=== PATIENT | female | born 1945 | race Caucasian/White ===

== ENCOUNTER 2022-11-08 12:00 | Outpatient (CLI) | payer MEDICARE, MEDICAID ==
[2022-11-08 13:12] LABS: ALBUMIN 4.1 G/DL (3.4-5.0); ANION GAP 9 (8-16); BLOOD UREA NITROGEN 19 MG/DL (7-18); BUN/CREATININE RATIO 19.4 (6.6-38.0); CALCIUM 9.9 MG/DL (8.5-10.1); CHLORIDE 103 MMOL/L (99-107); CREATININE 0.98 MG/DL (0.40-0.90); GLUCOSE 107 MG/DL (70-104); POTASSIUM 3.7 MMOL/L (3.5-5.1); SODIUM 140 MMOL/L (135-145); TOTAL CARBON DIOXIDE 27.9 MMOL/L (24-32); eGFR 55 ML/MIN
[2022-11-08 13:13] LABS: BASOPHILS % (AUTO) 0.4 % (0-1); EOSINOPHILS # (AUTO) 0.1 X10'3 (0-0.9); EOSINOPHILS % (AUTO) 1.9 % (0-6); HEMATOCRIT 46.5 % (35.0-45.0); HEMOGLOBIN 15.4 g/dl (12.0-16.0); LYMPHOCYTES # (AUTO) 2.3 X10'3 (1.1-4.8); LYMPHOCYTES % (AUTO) 33.5 % (21-51); MEAN CORPUSCULAR HEMOGLOBIN 31.3 PG (27.0-31.0); MEAN CORPUSCULAR HGB CONC 33.2 g/dL (33.0-36.5); MEAN CORPUSCULAR VOLUME 94.2 FL (78-98); MEAN PLATELET VOLUME 10.7 FL (7.4-10.4); MONOCYTES # (AUTO) 0.6 X10'3 (0-0.9); MONOCYTES % (AUTO) 8.5 % (2-12); NEUTROPHILS # (AUTO) 3.8 X10'3 (1.8-7.7); NEUTROPHILS % (AUTO) 55.7 % (42-75); PLATELET COUNT 157 X10'3 (140-440); RED BLOOD COUNT 4.93 X10'6 (4.20-5.60); RED CELL DISTRIBUTION WIDTH 13.7 % (11.5-14.5); WHITE BLOOD COUNT 6.9 X10'3 (4.5-11.0)
[2022-11-08 13:17] LABS: APTT 42 SECONDS (22-32)
== END 2022-11-08 23:59 | disposition home or self-care (01) ==
LOC: LAB 12:00 → EDSTATUS 11-15 14:00
PROVIDERS: ATTEND Student in an Organized Health Care Education/Training Program
DX: I48.91 Unspecified atrial fibrillation (principal); I10 Essential (primary) hypertension; E78.5 Hyperlipidemia, unspecified
CPT/HCPCS: 80048; 85025; 85610; 85730

== ENCOUNTER 2022-12-06 11:50 | Day surgery (SDC) | payer MEDICARE, MEDICAID ==
[2022-12-01 12:07] LABS: BASOPHILS # (AUTO) 0.1 X10'3 (0-0.2); BASOPHILS % (AUTO) 1.1 % (0-1); EOSINOPHILS # (AUTO) 0.2 X10'3 (0-0.9); EOSINOPHILS % (AUTO) 2.8 % (0-6); HEMATOCRIT 42.9 % (35.0-45.0); HEMOGLOBIN 14.1 g/dl (12.0-16.0); LYMPHOCYTES # (AUTO) 1.9 X10'3 (1.1-4.8); LYMPHOCYTES % (AUTO) 33.2 % (21-51); MEAN PLATELET VOLUME 10.2 FL (7.4-10.4); MONOCYTES # (AUTO) 0.5 X10'3 (0-0.9); MONOCYTES % (AUTO) 8.6 % (2-12); NEUTROPHILS # (AUTO) 3.1 X10'3 (1.8-7.7); NEUTROPHILS % (AUTO) 54.3 % (42-75); PLATELET COUNT 166 X10'3 (140-440); RED BLOOD COUNT 4.56 X10'6 (4.20-5.60); RED CELL DISTRIBUTION WIDTH 13.9 % (11.5-14.5); WHITE BLOOD COUNT 5.7 X10'3 (4.5-11.0)
[2022-12-01 12:17] LABS: ALBUMIN 3.6 G/DL (3.4-5.0); ANION GAP 6 (8-16); BLOOD UREA NITROGEN 11 MG/DL (7-18); BUN/CREATININE RATIO 12.9 (6.6-38.0); CALCIUM 9.3 MG/DL (8.5-10.1); CHLORIDE 107 MMOL/L (99-107); CREATININE 0.85 MG/DL (0.40-0.90); GLUCOSE 110 MG/DL (70-104); POTASSIUM 3.9 MMOL/L (3.5-5.1); SODIUM 140 MMOL/L (135-145); TOTAL CARBON DIOXIDE 27.2 MMOL/L (24-32); eGFR 65 ML/MIN
[2022-12-01 12:18] LABS: APTT 42 SECONDS (22-32)
[2022-12-06] VITALS (9 sets, daily range): BP systolic 143–178; BP diastolic 75–98
[~2022-12-06] VITALS: Ht 165.1 cm; Wt 73.6 kg
[2022-12-06] MEDS ORDERED: fentaNYL/PF 50MCG/1 ML 2ML syringe IV ONE (12:05)
[2022-12-06] MEDS ORDERED: normal saline 1000ml 1,000 ML IV SCH (12:05)
[2022-12-06] MEDS ORDERED: MIDAZolam 1mg/ml 10ml vial IV ONE (12:05)
[2022-12-06] MEDS ORDERED: SOTA80TA73 PO (12:13)
[2022-12-06] MEDS ORDERED: RIVA20TA PO (12:13)
[2022-12-06] MEDS ORDERED: CHOL20003 PO (12:13)
[2022-12-06] MEDS ORDERED: ATOR10TA70 PO (12:13)
[2022-12-06] MEDS ORDERED: LISI1TAB49 PO (12:13)
== END 2022-12-06 16:00 | disposition home or self-care (01) ==
LOC: SSTAY O 11:50
PROVIDERS: ATTEND Student in an Organized Health Care Education/Training Program
DX: I48.91 Unspecified atrial fibrillation (principal); I10 Essential (primary) hypertension; E78.5 Hyperlipidemia, unspecified; Z98.890 Other specified postprocedural states; Z79.899 Other long term (current) drug therapy
CPT/HCPCS: 36415; 80048; 85025; 85610; 85730; 92960; 93005; J2250; J3010; J7030; A4620

== ENCOUNTER 2023-01-27 11:50 | Outpatient (CLI) | payer MEDICARE, MEDICAID ==
[~2023-01-27 11:50] MED LIST: ATOR10TA70 PO; CHOL20003 PO; LISI1TAB49 PO; RIVA20TA PO; SOTA80TA73 PO
[2023-01-27 11:54] LABS: BASOPHILS % (AUTO) 0.6 % (0-1); EOSINOPHILS # (AUTO) 0.1 X10'3 (0-0.9); EOSINOPHILS % (AUTO) 2.1 % (0-6); HEMATOCRIT 38.3 % (35.0-45.0); HEMOGLOBIN 12.9 g/dl (12.0-16.0); LYMPHOCYTES # (AUTO) 1.9 X10'3 (1.1-4.8); LYMPHOCYTES % (AUTO) 35.8 % (21-51); MEAN CORPUSCULAR HEMOGLOBIN 31.3 PG (27.0-31.0); MEAN CORPUSCULAR HGB CONC 33.6 g/dL (33.0-36.5); MEAN CORPUSCULAR VOLUME 93.2 FL (78-98); MEAN PLATELET VOLUME 10.1 FL (7.4-10.4); MONOCYTES # (AUTO) 0.5 X10'3 (0-0.9); MONOCYTES % (AUTO) 9.8 % (2-12); NEUTROPHILS # (AUTO) 2.8 X10'3 (1.8-7.7); NEUTROPHILS % (AUTO) 51.7 % (42-75); PLATELET COUNT 154 X10'3 (140-440); RED BLOOD COUNT 4.11 X10'6 (4.20-5.60); RED CELL DISTRIBUTION WIDTH 13.5 % (11.5-14.5); WHITE BLOOD COUNT 5.4 X10'3 (4.5-11.0)
[2023-01-27 12:02] LABS: ALBUMIN 3.6 G/DL (3.4-5.0); ANION GAP 8 (8-16); BLOOD UREA NITROGEN 16 MG/DL (7-18); CALCIUM 9.5 MG/DL (8.5-10.1); CHLORIDE 103 MMOL/L (99-107); CREATININE 0.84 MG/DL (0.40-0.90); GLUCOSE 98 MG/DL (70-104); POTASSIUM 3.8 MMOL/L (3.5-5.1); SODIUM 138 MMOL/L (135-145); TOTAL CARBON DIOXIDE 27.1 MMOL/L (24-32); eGFR 66 ML/MIN
[2023-01-27 12:05] LABS: APTT 40 SECONDS (22-32)
== END 2023-01-27 23:59 | disposition home or self-care (01) ==
LOC: LAB 11:50 → EDSTATUS 01-31 12:30 → LAB 02-01 11:50
PROVIDERS: ATTEND Student in an Organized Health Care Education/Training Program
DX: Z01.812 Encounter for preprocedural laboratory examination (principal); I48.91 Unspecified atrial fibrillation; I10 Essential (primary) hypertension; E78.5 Hyperlipidemia, unspecified; R94.31 Abnormal electrocardiogram [ECG] [EKG]
CPT/HCPCS: 36415; 80048; 85025; 85610; 85730; A4620; J7030

== ENCOUNTER 2024-09-12 07:09 | Day surgery (SDC) | payer MEDICARE, MEDICAID ==
[~2024-09-12] VITALS: Ht 165.1 cm; Wt 71.4 kg
[2024-09-12 07:51] VITALS: BP 152/60; PULSE 58; RESP 15
[2024-09-12] MEDS ORDERED: fentaNYL/PF 50MCG/1 ML 2ML syringe ONE ×2 (08:18→08:38)
[2024-09-12] MEDS ORDERED: MIDAZolam 1 MG/ML 5ML VIAL ONE (08:18)
[2024-09-12] MEDS ORDERED: diphenhydrAMINE 50 mg/ml inj ONE (08:18)
[2024-09-12] MEDS ORDERED: simethicone 40mg/0.6ml oral drops 30ml ONE (09:05)
[2024-09-12 09:08] VITALS: BP 131/63; PULSE 60; RESP 10; O2SAT 96
[2024-09-12 09:15] VITALS: BP 123/59; PULSE 57; RESP 11; O2SAT 96
[2024-09-12 09:25] VITALS: BP 119/59; PULSE 56; RESP 10; O2SAT 96
[2024-09-12 09:35] VITALS: BP 146/65; PULSE 86; RESP 12; O2SAT 96
[2024-09-12 09:45] VITALS: BP 145/61; PULSE 56; RESP 12; O2SAT 96
== END 2024-09-12 10:00 | disposition home or self-care (01) ==
LOC: GI LAB 07:09
PROVIDERS: ATTEND Internal Medicine Gastroenterology
DX: K59.00 Constipation, unspecified (principal); K64.8 Other hemorrhoids; K63.89 Other specified diseases of intestine
CPT/HCPCS: 45378; 99153; A4620; G0500; J1200; J2250; J3010; J7030; Z7512; 99152

== ENCOUNTER 2024-11-19 10:17 | Day surgery (SDC) | payer MEDICARE, MEDICAID ==
[~2024-11-19] VITALS: Ht 165.1 cm; Wt 65.2 kg
[2024-11-19] VITALS (11 sets, daily range): BP systolic 117–211; BP diastolic 50–89; PULSE 54–65; RESP 12–14; TEMP 97.4; O2SAT 97–100
[~2024-11-19 10:17] MED LIST changes: +CHOL10003 PO; -CHOL20003 PO; +CYCL1DRO18 EACHEYE; +HYDR12.55 PO; -LISI1TAB49 PO; +LISI20TA28 PO; +MELA5TAB12 PO; +METF-1203 PO; +POLY510P31 PO; +magnesium PO; +omega 3 PO; +vitamin b PO
[2024-11-19 11:03] LABS: BASOPHILS % (AUTO) 0.9 % (0-1); EOSINOPHILS # (AUTO) 0.1 X10'3 (0-0.9); EOSINOPHILS % (AUTO) 2.1 % (0-6); HEMATOCRIT 34.9 % (35.0-45.0); HEMOGLOBIN 11.9 g/dl (12.0-16.0); LYMPHOCYTES # (AUTO) 1.5 X10'3 (1.1-4.8); LYMPHOCYTES % (AUTO) 34.5 % (21-51); MEAN CORPUSCULAR HEMOGLOBIN 29.4 PG (27.0-31.0); MEAN CORPUSCULAR HGB CONC 34.1 g/dL (33.0-36.5); MEAN CORPUSCULAR VOLUME 86.2 FL (78-98); MEAN PLATELET VOLUME 9.2 FL (7.4-10.4); MONOCYTES # (AUTO) 0.6 X10'3 (0-0.9); MONOCYTES % (AUTO) 14.6 % (2-12); NEUTROPHILS # (AUTO) 2.1 X10'3 (1.8-7.7); NEUTROPHILS % (AUTO) 47.9 % (42-75); PLATELET COUNT 148 X10'3 (140-440); RED BLOOD COUNT 4.05 X10'6 (4.20-5.60); RED CELL DISTRIBUTION WIDTH 15.2 % (11.5-14.5); WHITE BLOOD COUNT 4.4 X10'3 (4.5-11.0)
[2024-11-19 11:23] LABS: ALBUMIN 3.5 G/DL (3.4-5.0); ANION GAP 6 (8-16); BLOOD UREA NITROGEN 25 MG/DL (7-18); BUN/CREATININE RATIO 30.5 (10.0-20.0); CALCIUM 9.5 MG/DL (8.5-10.1); CHLORIDE 103 MMOL/L (99-107); CREATININE 0.82 MG/DL (0.40-0.90); GLUCOSE 101 MG/DL (70-104); POTASSIUM 3.7 MMOL/L (3.5-5.1); SODIUM 139 MMOL/L (135-145); TOTAL CARBON DIOXIDE 30.2 MMOL/L (24-32); eCRCL 50 ML/MIN; eGFR 67 ML/MIN
[2024-11-19 11:25] LABS: APTT 45 SECONDS (22-32); INR 1.6 INR; PROTHROMBIN TIME 15.8 SECONDS (9.0-12.0)
[2024-11-19] MEDS: fentaNYL/PF 50MCG/1 ML 2ML syringe IV ONE (13:22)
[2024-11-19] MEDS: MIDAZolam 1mg/ml 10ml vial IV ONE (13:22)
[2024-11-19] MEDS ORDERED: ASPI81TA52 PO (13:35)
[2024-11-19] MEDS ORDERED: CLOP75TA34 PO (13:35)
== END 2024-11-19 15:00 | disposition home or self-care (01) ==
LOC: SSTAY O 10:17
PROVIDERS: ATTEND Student in an Organized Health Care Education/Training Program
DX: I48.91 Unspecified atrial fibrillation (principal); I10 Essential (primary) hypertension; E78.5 Hyperlipidemia, unspecified; Z95.818 Presence of other cardiac implants and grafts; Z79.899 Other long term (current) drug therapy; Z98.890 Other specified postprocedural states; Z87.442 Personal history of urinary calculi
CPT/HCPCS: 36415; 80048; 82948; 85025; 85610; 85730; 93312; 93325; 94760; J2250; J3010; J7030

== ENCOUNTER 2025-02-03 13:57 | Emergency (ER) | payer MEDICARE, MEDICAID ==
[~2025-02-03] VITALS: Ht 165.1 cm; Wt 65.9 kg
[~2025-02-03 13:57] MED LIST changes: +ASPI81TA52 PO; +CLOP75TA34 PO; -HYDR12.55 PO; -METF-1203 PO; -POLY510P31 PO; -omega 3 PO
[2025-02-03 14:01] VITALS: BP 124/67; PULSE 82; RESP 15; TEMP 98.1; O2SAT 98
--- NOTE | 2025-02-03 14:13 | ELECTROCARDIOGRAPH REPORT ---
[facility] Test Date: 2025-02-03 Test Time: 14:03:31 Pat Name: KRIS CLAUDIO Department: EMERGENCY ROOM Room: Gender: F Ticket Writer: DWAYNE : 1945 Requested By: JOSE WHITFIELD Order Number: [id number] Reading MD: Dr. Maximilian Sharp Measurements Intervals [place] Rate: 66 P: 0 NE: 0 QRS: 62 QRSD: 95 T: 48 QT: 414 QTc: 434 Interpretive Statements Atrial flutter Electronically Signed On 02-05-2025 15:44:[address] Maximilian Sharp Please click the below link to view image of tracing.
[2025-02-03 14:23] LABS: BASOPHILS # (AUTO) 0.1 X10'3 (0-0.2); BASOPHILS % (AUTO) 1.6 % (0-1); EOSINOPHILS # (AUTO) 0.2 X10'3 (0-0.9); EOSINOPHILS % (AUTO) 2.7 % (0-6); HEMATOCRIT 39.1 % (35.0-45.0); HEMOGLOBIN 12.9 g/dl (12.0-16.0); LYMPHOCYTES # (AUTO) 2.2 X10'3 (1.1-4.8); MEAN CORPUSCULAR HEMOGLOBIN 27.2 PG (27.0-31.0); MEAN CORPUSCULAR VOLUME 82.6 FL (78-98); MONOCYTES # (AUTO) 0.6 X10'3 (0-0.9); MONOCYTES % (AUTO) 9.2 % (2-12); NEUTROPHILS # (AUTO) 3.9 X10'3 (1.8-7.7); NEUTROPHILS % (AUTO) 55.5 % (42-75); PLATELET COUNT 246 X10'3 (140-440); RED BLOOD COUNT 4.73 X10'6 (4.20-5.60); RED CELL DISTRIBUTION WIDTH 15.7 % (11.5-14.5)
--- NOTE | 2025-02-03 14:35 | RADIOLOGY REPORT ---
EXAM: DI CHEST,SINGLE VIEW REASON FOR EXAM: CP TECHNIQUE: 1 view of the chest COMPARISON: DI CHEST,SINGLE VIEW on DOS: 10/11/24 FINDINGS/IMPRESSION: LUNGS: No pleural effusion, consolidation, or pneumothorax MEDIASTINUM: Unremarkable BONES: No acute osseous abnormality OTHER: None
[2025-02-03 14:45] LABS: ALANINE AMINOTRANSFERASE 20 U/L (12-78); ALBUMIN 3.9 G/DL (3.4-5.0); ALBUMIN/GLOBULIN RATIO 1.1 (1.1-1.5); ALKALINE PHOSPHATASE 64 IU/L (46-116); ANION GAP 9 (8-16); ASPARTATE AMINO TRANSFERASE 21 U/L (10-37); BILIRUBIN,TOTAL 0.9 MG/DL (0.1-1.0); BLOOD UREA NITROGEN 23 MG/DL (7-18); BUN/CREATININE RATIO 20.9 (10.0-20.0); CALCIUM 9.3 MG/DL (8.5-10.1); CHLORIDE 106 MMOL/L (99-107); GLUCOSE 86 MG/DL (70-104); POTASSIUM 3.6 MMOL/L (3.5-5.1); PRO BRAIN NATRIURETIC PEPTIDE 880 PG/ML (0-450); SODIUM 140 MMOL/L (135-145); TOTAL CARBON DIOXIDE 25.1 MMOL/L (24-32); TOTAL PROTEIN 7.3 G/DL (6.4-8.2); eCRCL 37 ML/MIN; eGFR 48 ML/MIN
--- NOTE | 2025-02-04 00:17 | Physician Documentation ---
History of Present Illness General Chief Complaint: Shortness of Breath Stated Complaint: DIFF BREATHING Time Seen by MD: 15:07 History of Present Illness Initial Comments LWBS Medication Reconciliation Allergies: Coded Allergies: No Known Allergies (Unverified , 12/06/22) Scheduled Aspirin (Aspirin EC), 1 TAB PO DAILY Atorvastatin Calcium (Atorvastatin Calcium), 1 TAB PO DAILY, (Reported) Cholecalciferol (Vitamin D3) (Vitamin D3), 2 TAB PO BID, (Reported) Clopidogrel Bisulfate (Clopidogrel), 1 TAB PO DAILY Cyclosporine (Cyclosporine), 1 DROP EACHEYE BID, (Reported) Lisinopril (Lisinopril), 1 TAB PO QPM, (Reported) Melatonin (Melatonin), 1 TAB PO HS, (Reported) Rivaroxaban (Xarelto), 1 TAB PO DAILY, (Reported) Sotalol Hcl* (Betapace*), 0.5 TAB PO DAILY, (Reported) [magnesium], 250 MG PO BID, (Reported) [vitamin b], 1 TAB PO DAILY, (Reported) Physical Exam Physical Exam Vital Signs: Temperature: 98.1, Heart Rate: 82, Respiratory Rate: 15, BP: 124/67, Pulse Oximetry: 98, Weight: 65.910 Oxygen Flow Rate: 0 Progress Results/Orders Results/Orders Vital Signs 02/03/25 14:01 Temp 98.1 Pulse 82 Resp 15 B/P (MAP) 124/67 Pulse Ox 98 O2 Flow Rate 0 Laboratory Tests Test 02/03/25 14:09 White Blood Count 7.0 Red Blood Count 4.73 Hemoglobin 12.9 Hematocrit 39.1 Mean Corpuscular Volume 82.6 Mean Corpuscular Hemoglobin 27.2 Mean Corpuscular Hemoglobin Concent 33.0 Red Cell Distribution Width 15.7 H Platelet Count 246 Mean Platelet Volume 9.0 Neutrophils (%) (Auto) 55.5 Lymphocytes (%) (Auto) 31.0 Monocytes (%) (Auto) 9.2 Eosinophils (%) (Auto) 2.7 Basophils (%) (Auto) 1.6 H Neutrophils # (Auto) 3.9 Lymphocytes # (Auto) 2.2 Monocytes # (Auto) 0.6 Eosinophils # (Auto) 0.2 Basophils # (Auto) 0.1 CBC Comment Sodium Level 140 Potassium Level 3.6 Chloride Level 106 Carbon Dioxide Level 25.1 Anion Gap 9 Blood Urea Nitrogen 23 H Creatinine 1.10 H Estimated GFR/1.73 m2 48 BUN/Creatinine Ratio 20.9 H Glucose Level 86 Calcium Level 9.3 Total Bilirubin 0.9 Aspartate Amino Transf (AST/SGOT) 21 Alanine Aminotransferase (ALT/SGPT) 20 Alkaline Phosphatase 64 Troponin I High Sensitivity 7 Pro-B-Type Natriuretic Peptide 880 H Total Protein 7.3 Albumin 3.9 Globulin 3.4 Albumin/Globulin Ratio 1.1 Chemistry Comments Departure Disposition: 07 LEFT WITHOUT BEING SEEN Impression: Primary Impression: Difficulty breathing Referrals: NO PRIMARY CARE PROVIDER (PCP) Signature Scribe Signature: . Attestation: . KARISHMA OCHOA PAC February 04, 2025 00:17
== END 2025-02-03 21:06 | disposition left against medical advice (07) ==
LOC: ER 13:57
DX: R06.02 Shortness of breath (principal); Z79.82 Long term (current) use of aspirin; Z53.21 Procedure and treatment not carried out due to patient leaving prior to being seen by health care provider
CPT/HCPCS: 36415; 71045; 80053; 83880; 84484; 85025; 93005

== ENCOUNTER 2025-07-28 11:29 | Outpatient (CLI) | payer MEDICARE, MEDICAID ==
[2025-07-28] MEDS ORDERED: iohexol 300mg/ml 100ml inj. ONE (11:52)
--- NOTE | 2025-07-28 13:25 | RADIOLOGY REPORT ---
Accession Number: [id number] Clinical History: NECK MASS Comparison: None Technique: After the intravenous administration of intravenous contrast, multi- slice CT scan of the neck was performed without complication. Radiation Dose Information: CT Dose: CTDI volume is 15.18 mGy. Dose-length product is 802.67 mGy*cm Findings: 1.9 x 1.9 x 2.2 cm soft tissue density mass over the right submandibular region anterior to the right submandibular gland. The lesion is exerts mass effect on the adjacent submandibular gland. The right submandibular gland is otherwise unremarkable. The parotid glands and left submandibular gland are unremarkable. Heterogeneous appearance of the thyroid gland with small nodules largest on the right measuring up to 0.3 cm. There is mild asymmetric edema of the right retropharyngeal space. The nasopharynx, oropharynx, hypopharynx, esophagus, and larynx demonstrate normal patency and contour without evidence of a soft tissue mass at this time. Subcentimeter cervical lymph nodes which are not clinically concerning by size and morphology. Biapical atelectasis. Multilevel [id number] degenerative changes of the cervical spine. Mucous retention cyst within the left maxillary sinus. Bilateral lens replacement. Otherwise orbits and globes unremarkable. Decreased pneumatization of bilateral mastoids with mucosal thickening of the left inferior mastoid. The bilateral middle ears are clear. Partially visualized intracranial structures are unremarkable. Impression: 1.9 x 1.9 x 2.2 cm soft tissue density mass of the right submandibular region anterior to the right submandibular gland with mass effect on the right submandibular gland. Differentials include abnormal lymph node versus soft tissue density mass
== END 2025-07-28 23:59 | disposition home or self-care (01) ==
LOC: RAD 11:29
PROVIDERS: ATTEND Family Medicine
DX: R22.1 Localized swelling, mass and lump, neck (principal); M47.812 Spondylosis without myelopathy or radiculopathy, cervical region; J98.11 Atelectasis; M46.06 Spinal enthesopathy, lumbar region; N83.291 Other ovarian cyst, right side
CPT/HCPCS: 70492; Q9967

== ENCOUNTER 2025-09-24 10:57 | Outpatient (CLI) | payer MEDICARE, MEDICAID ==
[2025-09-24 11:39] LABS: CREATININE 1.06 MG/DL (0.40-0.90); TOTAL CARBON DIOXIDE 25.3 MMOL/L (24-32); eGFR 50 ML/MIN
[2025-09-24] MEDS ORDERED: iohexol 300 MG/1 ML 50ml polymer ONE (12:47)
--- NOTE | 2025-09-24 13:45 | RADIOLOGY REPORT ---
CLINICAL HISTORY: LOCALIZED ENLARGED LYMPH NODES,PERSISTENT CERVICAL LYMPHADENOPATHY TECHNIQUE: CT Head exam was performed with and without intravenous contrast. 95 ml of omnipaque 350 was administered intravenously. This exam was performed according to our departmental dose optimization program. Up-to-date CT equipment and radiation dose reduction techniques are utilized as appropriate. CTDI 56 DLP 1003 COMPARISON: None FINDINGS: There is no evidence for acute intracranial hemorrhage, acute ischemic changes, mass, mass effect, or extra-axial fluid collection. There is no hydrocephalus or midline shift. There is no effacement of the cerebral sulci and basal subarachnoid cisterns. The condon-white matter differentiation is well maintained. The imaged paranasal sinuses are clear. There is no abnormal enhancement. There has been bilateral cataract extraction. IMPRESSION: No acute intracranial abnormality seen.
--- NOTE | 2025-09-24 13:50 | RADIOLOGY REPORT ---
CLINICAL HISTORY: LOCALIZED ENLARGED LYMPH NODES,PERSISTENT CERVICAL LYMPHADENOPTHY W/UNINTEN TECHNIQUE: CT of the chest, abdomen, and pelvis was performed with IV contrast. Coronal and sagittal reformatted images were performed for better depiction of the anatomy. This exam was performed according to our departmental dose optimization program. Up-to-date CT equipment and radiation dose reduction techniques are utilized as appropriate. 95 mL of Omnipaque 350 was administered intravenously. CTDI 16 DLP 1258 COMPARISON: DI CHEST,SINGLE VIEW on DOS: 02/03/25, DI CHEST,SINGLE VIEW on DOS: 10/11/24, DI CHEST,TWO VIEWS on DOS: 10/01/24 FINDINGS: CHEST: The thoracic aorta is normal in course and caliber. There are mild aortic atherosclerotic calcifications. The heart is normal in size. No pericardial effusion is seen. There are a few scattered coronary artery calcifications. There has been left atrial appendage closure. No enlarged mediastinal, hilar, or axillary lymph node is present. The central airways are patent. There is no bronchiectasis. There is no suspicious pulmonary nodule or area of consolidation. There is mild subpleural scarring in both lungs with linear subpleural reticulations. There is no pleural effusion present. ABDOMEN/PELVIS: The spleen, pancreas, adrenal glands, left kidney, gallbladder, liver, and bladder are unremarkable. The uterus is absent. There is a 7 mm nonobstructing right renal calculus. There is a small right renal cyst. The abdominal aorta is normal in course and caliber. There are moderate aortic atherosclerotic calcifications. There is no free intraperitoneal air. There is trace Nonspecific free fluid in the deep pelvis. There is no enlarged abdominal or pelvic lymph node. There is no bowel wall thickening or dilatation. There is a moderate amount of stool in the colon. No acute osseous abnormality is evident. IMPRESSION: No acute CT abnormality of the chest, abdomen or pelvis. No CT evidence for malignancy. Nonobstructing right renal calculus. Constipation.
== END 2025-09-24 23:59 | disposition home or self-care (01) ==
LOC: RAD 10:57
PROVIDERS: ATTEND Family Medicine
DX: N20.0 Calculus of kidney (principal); R59.0 Localized enlarged lymph nodes; I25.10 Atherosclerotic heart disease of native coronary artery without angina pectoris; J98.4 Other disorders of lung; K59.00 Constipation, unspecified; I70.0 Atherosclerosis of aorta; N28.1 Cyst of kidney, acquired
CPT/HCPCS: 36415; 70460; 71260; 74177; 80053; Q9967